=== PATIENT | female | born 1975 | race Caucasian/White ===

== ENCOUNTER 2019-03-04 05:45 | Day surgery (SDC) | payer BC ==
[~2019-03-04] VITALS: Ht 157.5 cm; Wt 84.4 kg
[2019-03-04] MEDS ORDERED: CEFAZOLIN SOD 2 GM in D5W 50 ML IV ONE (07:00)
[2019-03-04] MEDS ORDERED: ROPIVACAINE HCL/PF 0.2% EPIDURAL 200 ML PLAST..BAG EP ONE (07:15)
[2019-03-04] MEDS ORDERED: ROPIVACAINE HCL/PF 5 MG/ML 0.5% 30 ML VIAL INJ ONE (07:15)
[2019-03-04] MEDS ORDERED: NS IRRIG SOLN 1000 ML IR ONE (07:15)
[2019-03-04] MEDS ORDERED: METOCLOPRAMIDE HCL 10 MG/2 ML VIAL IVP ONE (07:15)
[2019-03-04] MEDS ORDERED: PROPOFOL 200MG/ 20ML VIAL (DIPRIVAN) IV ONE (07:15)
[2019-03-04] MEDS ORDERED: KETOROLAC TROMETHAMINE 30 MG VIAL IVP ONE (07:15)
[2019-03-04] MEDS ORDERED: DEXAMETHASONE SOD PHOSPHATE 4 MG/ML VIAL IVP ONE (07:15)
[2019-03-04] MEDS ORDERED: ROCURONIUM BROMIDE 10 MG/ML (ZEMURON) IV ONE (07:15)
[2019-03-04] MEDS ORDERED: fentaNYL CITRATE 250 MCG/5 ML AMP IV ONE (07:15)
[2019-03-04] MEDS ORDERED: LR 1,000 ML IV.SOLN IV ONE (07:15)
[2019-03-04] MEDS ORDERED: SEVOFLURANE 15 MIN GAS INH ONE (07:15)
[2019-03-04] MEDS ORDERED: BUPIVACAINE /EPINEPHRINE/PF 0.5% 30 ML VIAL INJ ONE (07:15)
[2019-03-04] MEDS ORDERED: MIDAZOLAM HCL 5 MG/5 ML VIAL IVP ONE (07:15)
[2019-03-04] MEDS ORDERED: LR 1,000 ML IV SCH (08:04)
[2019-03-04] MEDS ORDERED: MEPERIDINE HCL/PF 25 MG/ML DISP.SYRIN IVP PRN (08:15)
[2019-03-04] MEDS ORDERED: HYDROmorphone 2 MG/ML VIAL IVP PRN ×2 (08:15)
[2019-03-04] MEDS ORDERED: HYDROmorphone 1 MG INJ. 1 MG/ML AMPUL IVP PRN (08:15)
[2019-03-04] MEDS ORDERED: HYDROcodone/ACETAMIN 5-325 MG TAB (NORCO/ VICODIN) PO PRN (09:30)
[2019-03-04] MEDS ORDERED: ONDANSETRON HCL 4 MG/2 ML VIAL IM PRN (09:30)
[2019-03-04] MEDS ORDERED: OXYCODONE/ACETAMINOPHEN 5-325 TABLET PO PRN ×2 (09:30)
[2019-03-04 11:33] VITALS: BP_SYST 111
== END 2019-03-04 12:25 | disposition home or self-care (01) ==
LOC: SDS 05:45 → SMU 05:45 → EDSTATUS 07:30 → SMU 12:18 → SDS 12:25
PROVIDERS: ATTEND Specialist
DX: N93.8 Other specified abnormal uterine and vaginal bleeding (principal); N92.0 Excessive and frequent menstruation with regular cycle; N80.0 Endometriosis of uterus; N94.6 Dysmenorrhea, unspecified; E66.01 Morbid (severe) obesity due to excess calories
CPT/HCPCS: 58552; 64488; 88307; C1727; J0690; J1100; J1885; J2250; J2704; J2765; J3010; J3490; J7060; J7120; E0190